=== PATIENT | female | born 1985 | race Hispanic/Latino ===

== ENCOUNTER 2019-04-07 00:15 | Emergency (ER) | payer SELFPAY ==
--- OUTSIDE RECORDS SUMMARY | 2019-04-07 00:18 | XMS REPORT ---
:1985 [facility] E[place] [address] [place] [id number] Care Team Providers Name Role Phone Unavailable Unavailable Unavailable Problems This patient has no known problems. Allergies, Adverse Reactions, Alerts This patient has no known allergies or adverse reactions. Medications This patient has no known medications.
[2019-04-07 01:09] LABS: Basophils % 0.7 % (0-1.3); Lymphocytes % 30.3 % (15.3-44.8); MPV 9.6 fL (7.6-11.3); RBC Red Blood Cell Count 3.81 M/uL (3.86-4.86)
[2019-04-07] MEDS ORDERED: ONDANSETRON 4 MG/2 ML VIAL ONE (01:17)
[2019-04-07 01:19] LABS: Urine Bacteria <20 /HPF (<20); Urine Culture Reflex Order REFLEXED; Urine Mucus 1+ /HPF (NONE SEEN)
[2019-04-07 01:26] LABS: ALT/SGPT 22 U/L (12-78); AST/SGOT 12 U/L (15-37); Albumin 3.3 g/dL (3.4-5.0); Alkaline Phosphatase 52 U/L (45-117); BUN Blood Urea Nitrogen 19 mg/dL (7-18); Bicarbonate 27 mmol/L (21-32); Bilirubin Direct < 0.1 mg/dL (0-0.2); Bilirubin Total 0.1 mg/dL (0.2-1.0); Glucose Level 122 mg/dL (74-106); Lipase 178 U/L (73-393); Potassium 4.1 mmol/L (3.5-5.1); Protein, Total 7.1 g/dL (6.4-8.2); Sodium Level 138 mmol/L (136-145)
[2019-04-07 02:41] LABS: Urine Blood 2+ (NEG); Urine Glucose NEGATIVE (NEG); Urine Protein NEGATIVE (NEG); Urine Specific Gravity 1.025 (1.005-1.030)
--- NOTE | 2019-04-07 02:57 | ER ---
Nurse's Notes [facility] Name: Katja Pena Age: 33 yrs Sex: Female : 1985 Arrival Date: 04/07/2019 Time: 00:17 Bed 7 Private MD: Diagnosis: Urinary tract infection, site not specified;Nausea and vomiting;Diarrhea, unspecified Presentation: 04/07 00:32 Presenting complaint: Patient states: N/V/D abd pain cramps intermittent X1 week. ak1 Transition of care: patient was not received from another setting of care. Onset of symptoms is unknown. Risk Assessment: Do you want to hurt yourself or someone else? Patient reports no desire to harm self or others. Initial Sepsis Screen: Does the patient meet any 2 criteria? No. Patient's initial sepsis screen is negative. Does the patient have a suspected source of infection? No. Patient's initial sepsis screen is negative. Care prior to arrival: None. 00:32 Method Of Arrival: Ambulatory ak1 00:32 Acuity: ESSENCE 3 ak1 Triage Assessment: 00:34 General: Appears in no apparent distress. Behavior is calm, cooperative. Pain: ak1 Complains of pain in suprapubic area. 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 - Social history:: Smoking status: Patient uses tobacco products, denies chronic smoking, but will smoke occasionally. - Ebola Screening: : No symptoms or risks identified at this time. Screenin:36 Abuse screen: Denies threats or abuse. Denies injuries from another. Nutritional ak1 screening: No deficits noted. Tuberculosis screening: No symptoms or risk factors identified. Fall Risk None identified. Assessment: 01:00 General: Appears in no apparent distress. Behavior is appropriate for age. Pain: lp1 Complains of pain in suprapubic area Pain currently is 6 out of 10 on a pain scale. Quality of pain is described as crampy. Neuro: No deficits noted. Cardiovascular: Patient's skin is warm and dry. Respiratory: Respiratory effort is even, unlabored. GI: Abdomen is non-distended, Bowel sounds present X 4 quads. Abdomen is tender to palpation in suprapubic area. : Reports pain in suprapubic area. EENT: No signs and/or symptoms were reported regarding the EENT system. Derm: Skin is pink, warm \T\ dry. Musculoskeletal: No deficits noted. 02:00 Reassessment: Patient appears in no apparent distress at this time. Patient states lp1 nausea improved. 03:00 Reassessment: Patient is alert, oriented x 3, equal unlabored respirations, skin lp1 warm/dry/pink. Patient states feeling better. Vital Signs: 00:31 BP 119 / 102; Pulse 82; Resp 20; Temp 98.4; Pulse Ox 99% on R/A; Weight 65.77 kg (R); ak1 Height 5 ft. 2 in. (157.48 cm) (R); Pain 9/10; 01:30 BP 116 / 67; Pulse 68; Resp 16; Pulse Ox 100% on R/A; lp1 03:35 BP 116 / 81; Pulse 60; Resp 16; Pulse Ox 100% on R/A; Pain 7/10; lp1 00:31 Body Mass Index 26.52 (65.77 kg, 157.48 cm) ak1 ED Course: 00:17 Patient arrived in ED. cf2 00:29 Rosalva Guajardo, RN is Primary Nurse. lp1 00:31 Arm band placed on Patient placed in an exam room, on a stretcher, on pulse oximetry, ak1 Patient notified of wait time. 00:33 Triage completed. ak1 00:34 Shiva Pina MD is Attending Physician. tw4 00:55 Initial lab(s) drawn, by co, sent to lab. Inserted saline lock: 20 gauge in right lp1 antecubital area, using aseptic technique. Blood collected. 01:00 Patient has correct armband on for positive identification. lp1 03:17 No provider procedures requiring assistance completed. IV discontinued, No lp1 redness/swelling at site. Pressure dressing applied. 03:23 Primary Nurse role handed off by Rosalva Guajardo, RN ak1 03:35 Rosalva Guajardo, RN is Primary Nurse. lp1 Administered Medications: 01:16 Drug: Zofran 4 mg Route: IVP; Site: right antecubital; lp1 02:00 Follow up: Response: No adverse reaction; Marked relief of symptoms lp1 03:05 Drug: Rocephin - (cefTRIAXone) 1 grams Route: IVPB; Infused Over: 30 mins; Site: right lp1 antecubital; 03:20 Follow up: IV Status: Completed infusion; IV Intake: 10ml lp1 03:16 Not Given (no diarrhea): LoMOTIL 1 tabs PO once lp1 03:34 Drug: TORadol 30 mg Route: IVP; Site: right antecubital; lp1 03:34 Follow up: Response: Medication administered at discharge. lp1 Intake: 03:20 IV: 10ml; Total: 10ml. lp1 Outcome: 02:56 Discharge ordered by . [email or web address] 03:19 Discharged to home ambulatory. lp1 03:19 Condition: good 03:19 Discharge instructions given to patient, Instructed on discharge instructions, follow up and referral plans. medication usage, Demonstrated understanding of instructions, follow-up care, medications, Prescriptions given X 4. 03:20 Patient left the ED. lp1 03:38 Patient left the ED. lp1 Signatures: Rosalva Guajardo RN RN lp1 Xochilt Khan RN RN ak1 Shiva Pina MD MD tw4 Kamar Hillman cf2 Corrections: (The following items were deleted from the chart) 03:35 03:19 Discharge instructions given to patient, Instructed on discharge instructions, lp1 follow up and referral plans. medication usage, Demonstrated understanding of instructions, follow-up care, medications, Prescriptions given X 3, lp1
--- NOTE | 2019-04-07 02:58 | EDPHYS ---
Physician Documentation [facility] Name: Katja Pena Age: 33 yrs Sex: Female : 1985 Arrival Date: 04/07/2019 Time: 00:17 Bed 7 Private MD: ED Physician Shiva Pina HPI: 04/07 01:50 This 33 yrs old Female presents to ER via Ambulatory with complaints of tw4 Abdominal Pain, Pelvic Pain, Vaginal Pain, Nausea. 01:50 The patient presents with abdominal pain right lower quadrant, in the left lower tw4 quadrant. Onset: The symptoms/episode began/occurred today. The symptoms do not radiate. Associated signs and symptoms: none. 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 - Social history:: Smoking status: Patient uses tobacco products, denies chronic smoking, but will smoke occasionally. - Ebola Screening: : No symptoms or risks identified at this time. ROS: 02:31 Cardiovascular: Negative for chest pain, palpitations, and edema, Respiratory: Negative tw4 for shortness of breath, cough, wheezing, and pleuritic chest pain, Back: Negative for injury and pain, MS/Extremity: Negative for injury and deformity, Skin: Negative for injury, rash, and discoloration, Neuro: Negative for headache, weakness, numbness, tingling, and seizure. 02:31 Abdomen/GI: Positive for abdominal pain, nausea and vomiting, nausea, vomiting, and diarrhea, nausea, vomiting, diarrhea. Exam: 02:31 Constitutional: This is a well developed, well nourished patient who is awake, alert, tw4 and in no acute distress. Head/Face: Normocephalic, atraumatic. Chest/axilla: Normal chest wall appearance and motion. Nontender with no deformity. No lesions are appreciated. Cardiovascular: Regular rate and rhythm with a normal S1 and S2. No gallops, murmurs, or rubs. Normal PMI, no JVD. No pulse deficits. Respiratory: Lungs have equal breath sounds bilaterally, clear to auscultation and percussion. No rales, rhonchi or wheezes noted. No increased work of breathing, no retractions or nasal flaring. Back: No spinal tenderness. No costovertebral tenderness. Full range of motion. MS/ Extremity: Pulses equal, no cyanosis. Neurovascular intact. Full, normal range of motion. Neuro: Awake and alert, GCS 15, oriented to person, place, time, and situation. Cranial nerves II-XII grossly intact. Motor strength 5/5 in all extremities. Sensory grossly intact. Cerebellar exam normal. Normal gait. Vital Signs: 00:31 BP 119 / 102; Pulse 82; Resp 20; Temp 98.4; Pulse Ox 99% on R/A; Weight 65.77 kg (R); ak1 Height 5 ft. 2 in. (157.48 cm) (R); Pain 9/10; 01:30 BP 116 / 67; Pulse 68; Resp 16; Pulse Ox 100% on R/A; lp1 03:35 BP 116 / 81; Pulse 60; Resp 16; Pulse Ox 100% on R/A; Pain 7/10; lp1 00:31 Body Mass Index 26.52 (65.77 kg, 157.48 cm) ak1 MDM: 00:35 Patient medically screened. tw4 03:05 Data reviewed: vital signs, nurses notes, lab test result(s), CBC, white blood cell tw4 count, hemoglobin, hematocrit, platelets, electrolytes, sodium, potassium, chloride, serum bicarbonate, BUN, creatinine, serum glucose, hepatic panel, urinalysis, pyuria. Counseling: I had a detailed discussion with the patient and/or guardian regarding: the historical points, exam findings, and any diagnostic results supporting the discharge/admit diagnosis, lab results. Medication response: Zofran relieved the patient's nausea. Response to treatment: the patient's symptoms have markedly improved after treatment, and as a result, I will discharge patient. Special discussion: I discussed with the patient/guardian in detail that at this point there is no indication for admission to the hospital. It is understood, however, that if the symptoms persist or worsen the patient needs to return immediately for re-evaluation. 04/07 00:41 Order name: Basic Metabolic Panel tw4 04/07 00:41 Order name: CBC with Diff; Complete Time: 02:21 tw4 04/07 02:21 Interpretation: Normal except: RBC 3.81; MCV 97.2. [facility] [place] 04/07 00:41 Order name: Creatinine for Radiology; Complete Time: 02:21 tw4 04/07 00:41 Order name: Hepatic Function; Complete Time: 02:21 tw4 04/07 02:22 Interpretation: Normal except: AST 12; BILIT 0.1; ALB 3.3; GLOB 3.8; A/G 0.9. tw 04/07 00:41 Order name: Lipase; Complete Time: 02:21 tw4 04/07 00:42 Order name: Basic Metabolic Panel; Complete Time: 02:21 [facility] 04/07 02:22 Interpretation: Normal except: GLUC 122; BUN 19. [facility] [place] 04/07 00:47 Order name: Urine Microscopic Only; Complete Time: 02:21 [facility] 04/07 02:46 Interpretation: Normal except: URBC 5-10; UWBC 10-20. [facility] [place] 04/07 01:23 Order name: Urine Culture [facility] 04/07 01:58 Order name: Urine Dipstick--Ancillary (enter results) [facility] 04/07 01:58 Order name: Urine --Ancillary (enter results) [facility] 04/07 00:41 Order name: Urine Dipstick-Ancillary (obtain specimen); Complete Time: 00:48 tw 04/07 00:41 Order name: IV Saline Lock; Complete Time: 01:03 tw 04/07 00:41 Order name: Labs collected and sent; Complete Time: 01:03 [facility] [place] 04/07 00:41 Order name: Urine Test (obtain specimen); Complete Time: 00:48 tw Administered Medications: 01:16 Drug: Zofran 4 mg Route: IVP; Site: right antecubital; lp1 02:00 Follow up: Response: No adverse reaction; Marked relief of symptoms lp1 03:05 Drug: Rocephin - (cefTRIAXone) 1 grams Route: IVPB; Infused Over: 30 mins; Site: right lp1 antecubital; 03:20 Follow up: IV Status: Completed infusion; IV Intake: 10ml lp1 03:16 Not Given (no diarrhea): LoMOTIL 1 tabs PO once lp1 03:34 Drug: TORadol 30 mg Route: IVP; Site: right antecubital; lp1 03:34 Follow up: Response: Medication administered at discharge. lp1 Disposition: 04/07/19 02:56 Discharged to Home. Impression: Urinary tract infection, site not specified, Nausea and vomiting, Diarrhea, unspecified. - Condition is Stable. - Discharge Instructions: Food Choices to Help Relieve Diarrhea, Adult, Diarrhea, Adult, Nausea and Vomiting, Adult, Rotavirus Infection, Adult, Urinary Tract Infection, Adult, Antibiotic Medicine, [id number]. - Prescriptions for Zofran 4 mg Oral Tablet - take 1 tablet by ORAL route every 12 hours As needed; 6 tablet. Lomotil 2.5- 0.025 mg Oral Tablet - take 2 tablet by ORAL route once daily As needed; 20 tablet. Macrobid 100 mg Oral Capsule - take 1 capsule by ORAL route every 12 hours for 10 days; 20 capsule. Bentyl 20 mg Oral Tablet - take 1 tablet by ORAL route every 6 hours As needed; 20 tablet. - Medication Reconciliation Form, Thank You Letter, Antibiotic Education, Prescription Opioid Use form. - Follow up: Private Physician; When: Upon discharge from the Emergency Department; Reason: Recheck today's complaints, Continuance of care. - Problem is new. - Symptoms have improved. Signatures: Dispatcher [employer] EDMS Rosalva Guajardo RN RN lp1 Xochilt Khan RN RN ak1 Shiva Pina MD MD tw4 Corrections: (The following items were deleted from the chart) 03:20 02:56 04/07/2019 02:56 Discharged to Home. Impression: Urinary tract infection, site lp1 not specified; Nausea and vomiting; Diarrhea, unspecified. Condition is Stable. Forms are Medication Reconciliation Form, Thank You Letter, Antibiotic Education, Prescription Opioid Use. Follow up: Private Physician; When: Upon discharge from the Emergency Department; Reason: Recheck today's complaints, Continuance of care. Problem is new. Symptoms have improved. tw4 03:38 03:20 04/07/2019 02:56 Discharged to Home. Impression: Urinary tract infection, site lp1 not specified; Nausea and vomiting; Diarrhea, unspecified. Condition is Stable. Discharge Instructions: Food Choices to Help Relieve Diarrhea, Adult, Diarrhea, Adult, Nausea and Vomiting, Adult, Rotavirus Infection, Adult, Urinary Tract Infection, Adult, Antibiotic Medicine, [id number]. Prescriptions for Zofran 4 mg Oral Tablet - take 1 tablet by ORAL route every 12 hours As needed; 6 tablet, Lomotil 2.5-0.025 mg Oral Tablet - take 2 tablet by ORAL route once daily As needed; 20 tablet, Macrobid 100 mg Oral Capsule - take 1 capsule by ORAL route every 12 hours for 10 days; 20 capsule. and Forms are Medication Reconciliation Form, Thank You Letter, Antibiotic Education, Prescription Opioid Use. Follow up: Private Physician; When: Upon discharge from the Emergency Department; Reason: Recheck today's complaints, Continuance of care. Problem is new. Symptoms have improved. lp1
[2019-04-07] MEDS ORDERED: CEFTRIAXONE/SWI 1gm 1 GM/10 ML SYR ONE (03:01)
[2019-04-07] MEDS ORDERED: DIPHENOX/ATROP SULF 1 TAB PO ONE (03:01)
[2019-04-07] MEDS ORDERED: KETOROLAC 30 MG/ML INJ ONE (03:33)
[2019-04-07 05:49] VITALS: TEMP 98.4
[2019-04-07 05:50] VITALS: O2SAT 100
[2019-04-07 06:07] VITALS: BP 116/81
== END 2019-04-07 03:38 | disposition home or self-care (01) ==
LOC: ER 00:15
DX: N39.0 Urinary tract infection, site not specified (principal); R19.7 Diarrhea, unspecified; Z72.0 Tobacco use
CPT/HCPCS: 36415; 80048; 80076; 81003; 81015; 81025; 83690; 85025; 87086; 87088; 96374; 96375; 99284; J0696; J2405

== ENCOUNTER 2020-09-07 17:56 | Emergency (ER) | payer SELFPAY ==
--- OUTSIDE RECORDS SUMMARY | 2020-09-07 17:59 | XMS REPORT | Continuity of Care Document ---
:1985 Author Organization [facility] t Address [address] [place] [address] Dr. E[address] [place] [id number] Care Team Providers Name Role Phone Unavailable Unavailable Unavailable Problems This patient has no known problems. Allergies, Adverse Reactions, Alerts This patient has no known allergies or adverse reactions. Medications This patient has no known medications. Procedures This patient has no known procedures. Results This patient has no known results.
[2020-09-07 18:41] LABS: Urine Blood 2+ (Negative); Urine Glucose Negative (Negative); Urine Protein Negative (Negative); Urine Specific Gravity 1.025 (1.005-1.030)
--- NOTE | 2020-09-07 18:42 | EDPHYS ---
Physician Documentation [facility] Name: Katja Pena Age: 35 yrs Sex: Female : 1985 Arrival Date: 09/07/2020 Time: 17:58 Bed 15 Private MD: ED Physician Hussain Umana HPI: 09/07 19:07 This 35 yrs old Female presents to ER via Ambulatory with complaints of kb Foreign body In Vagina, Vaginal Discharge. 19:07 The patient presents with vaginal discharge, that is malodorous brown discharge. Onset: kb The symptoms/episode began/occurred 2 week(s) ago. Modifying factors: The symptoms are alleviated by nothing, the symptoms are aggravated by nothing. Associated signs and symptoms: Pertinent positives: vaginal discharge. Severity of symptoms: At their worst the symptoms were moderate, in the emergency department the symptoms are unchanged. The patient has experienced a previous episode. The patient has not recently seen a physician. Pt reports she has had some vaginal discharge that has a bad smell to it for about 2 weeks. States she had a similar smell last time she left a tampon in so she thinks there is one in there. States she isn't sure how long it has been there, LMP that she can think of was 2 months ago. slight spotting last month. Denies fever, abd pain, n/v/d. States she feels some pressure to vagina. 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 - Social history:: Smoking status: Patient reports the use of cigarette tobacco products, denies chronic smoking, but will smoke occasionally. ROS: 19:05 Constitutional: Negative for fever, chills, and weight loss. kb 19:05 : Positive for pressure in vagina, possible FB. 19:06 All other systems are negative. kb Exam: 19:06 Constitutional: This is a well developed, well nourished patient who is awake, alert, kb and in no acute distress. ENT: Moist Mucous membranes Respiratory: Respirations even and unlabored. No increased work of breathing, no retractions or nasal flaring. Abdomen/GI: Soft, non-tender. No distention Skin: Warm, dry with normal turgor. Normal color. MS/ Extremity: Pulses equal, no cyanosis. Neurovascular intact. Full, normal range of motion. Neuro: Awake and alert, GCS 15, oriented to person, place, time, and situation. Moves all extremities. Normal gait. Psych: Awake, alert, with orientation to person, place and time. Behavior, mood, and affect are within normal limits. 19:07 : Pelvic Exam: Speculum exam: tampon in vagina , discharge, malodorous. kb Vital Signs: 18:12 BP 112 / 80; Pulse 71; Resp 18; Temp 97.4; Pulse Ox 97% on R/A; Weight 68.04 kg; Height em 5 ft. 2 in. (157.48 cm); Pain 8/10; 18:26 BP 93 / 61; Pulse 70; Resp 14; Pulse Ox 98% on R/A; vg1 18:12 Body Mass Index 27.44 (68.04 kg, 157.48 cm) em Procedures: 19:06 Foreign Body Removal: a tampon, from the vagina, by ring forcepts. The patient kb tolerated the removal well. MDM: 18:16 Patient medically screened. kb 19:05 Data reviewed: vital signs, nurses notes. Data interpreted: Pulse oximetry: on room air kb is 98 %. Interpretation: normal. Counseling: I had a detailed discussion with the patient and/or guardian regarding: the historical points, exam findings, and any diagnostic results supporting the discharge/admit diagnosis, the need for outpatient follow up, an OB/Gyne specialist, to return to the emergency department if symptoms worsen or persist or if there are any questions or concerns that arise at home. 09/07 18:41 Order name: Urine Dipstick-Ancillary; Complete Time: 18:43 EDMS Administered Medications: 19:06 Drug: Flagyl (metroNIDAZOLE) 500 mg Route: PO; vg1 19:07 Follow up: Response: Medication administered at discharge. vg1 19:06 Drug: Augmentin (Amoxicillin-Clavulanate) 875 mg Route: PO; vg1 19:07 Follow up: Response: Medication administered at discharge. vg1 19:06 Drug: Tylenol 1000 mg Route: PO; vg1 19:07 Follow up: Response: Medication administered at discharge. vg1 Disposition: 09/08 13:16 Co-signature as Attending Physician, Hussain Umana MD I agree with the assessment and kdr plan of care. Disposition: 09/07/20 18:41 Discharged to Home. Impression: Foreign body in vulva and vagina - tampon - removed. - Condition is Stable. - Discharge Instructions: Vaginal Foreign Body, [id number]. - Prescriptions for Augmentin 875- 125 mg Oral Tablet - take 1 tablet by ORAL route every 12 hours for 10 days; 20 tablet. Flagyl 500 mg Oral Tablet - take 1 tablet by ORAL route every 8 hours for 10 days; 30 tablet. - Medication Reconciliation Form, Thank You Letter, Antibiotic Education, Prescription Opioid Use form. - Follow up: Emergency Department; When: As needed; Reason: Worsening of condition. Follow up: Private Physician; When: 2 - 3 days; Reason: Recheck today's complaints, Continuance of care, Re-evaluation by your physician. Signatures: Dispatcher [employer] EDTX Keiko Mckeon, VISUAL AND STOCK ASSOCIATE-C VISUAL AND STOCK ASSOCIATE-CkHussain Arrieta MD MD [facility] David Pop, RN RN em Amy Allen, RN RN vg1 Corrections: (The following items were deleted from the chart) 09/07 19:08 18:41 09/07/2020 18:41 Discharged to Home. Impression: Foreign body in vulva and vagina vg1 - tampon - removed. Condition is Stable. Forms are Medication Reconciliation Form, Thank You Letter, Antibiotic Education, Prescription Opioid Use. Follow up: Emergency Department; When: As needed; Reason: Worsening of condition. Follow up: Private Physician; When: 2 - 3 days; Reason: Recheck today's complaints, Continuance of care, Re-evaluation by your physician. kb
--- NOTE | 2020-09-07 18:42 | ER ---
Nurse's Notes [facility] Name: Katja Pena Age: 35 yrs Sex: Female : 1985 Arrival Date: 09/07/2020 Time: 17:58 Bed 15 Private MD: Diagnosis: Foreign body in vulva and vagina-tampon - removed Presentation: 09/07 18:12 Chief complaint: Patient states: has had a tampon stuck for 2 weeks, reports foul odor em and discharge, denies fever, denies burning with urination. Coronavirus screen: Client denies travel out of the [place] in the last 14 days. Ebola Screen: Patient negative for fever greater than or equal to 101.5 degrees Fahrenheit, and additional compatible Ebola Virus Disease symptoms Patient denies exposure to infectious person. Patient denies travel to an Ebola-affected area in the 21 days before illness onset. No symptoms or risks identified at this time. Initial Sepsis Screen: Does the patient meet any 2 criteria? No. Patient's initial sepsis screen is negative. Does the patient have a suspected source of infection? No. Patient's initial sepsis screen is negative. Risk Assessment: Do you want to hurt yourself or someone else? Patient reports no desire to harm self or others. Onset of symptoms was September 07, 2020. 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 - Social history:: Smoking status: Patient reports the use of cigarette tobacco products, denies chronic smoking, but will smoke occasionally. Screenin:27 Abuse screen: Denies threats or abuse. Nutritional screening: No deficits noted. vg1 Tuberculosis screening: No symptoms or risk factors identified. Fall Risk No fall in past 12 months (0 pts). No secondary diagnosis (0 pts). No IV (0 pts). Ambulatory Aid- None/Bed Rest/Nurse Assist (0 pts). Gait- Normal/Bed Rest/Wheelchair (0 pts) Mental Status- Oriented to own ability (0 pts). Total Truong Fall Scale indicates No Risk (0-24 pts). Assessment: 18:25 General: Appears in no apparent distress. comfortable, Behavior is calm, cooperative. vg1 Pain: Complains of pain in pelvis Pain currently is 9 out of 10 on a pain scale. Neuro: Level of Consciousness is awake, alert, obeys commands, Oriented to person, place, time, situation, Reports headache. Cardiovascular: Patient's skin is warm and dry. Respiratory: Airway is patent Respiratory effort is even, unlabored. Derm: Skin is intact, Skin is pink, warm \T\ dry. Musculoskeletal: Circulation, motion, and sensation intact. 18:26 : Reports discharge, from vagina that is yellow, vaginal itching, vaginal bleeding vg1 that is. 19:05 Reassessment: Received VO from KEEGAN Mckeon to administer Tylenol 1000 mg PO x1. vg1 19:07 Reassessment: Patient appears in no apparent distress at this time. Patient and/or vg1 family updated on plan of care and expected duration. Pain level reassessed. Patient is alert, oriented x 3, equal unlabored respirations, skin warm/dry/pink. Vital Signs: 18:12 BP 112 / 80; Pulse 71; Resp 18; Temp 97.4; Pulse Ox 97% on R/A; Weight 68.04 kg; Height em 5 ft. 2 in. (157.48 cm); Pain 8/10; 18:26 BP 93 / 61; Pulse 70; Resp 14; Pulse Ox 98% on R/A; vg1 18:12 Body Mass Index 27.44 (68.04 kg, 157.48 cm) em ED Course: 17:58 Patient arrived in ED. ds1 18:14 Triage completed. em 18:14 Arm band placed on. em 18:16 Keiko Mckeon FNP-C is [facility]. kb 18:16 Hussain Umana MD is Attending Physician. kb 18:18 Amy Allen, RN is Primary Nurse. vg1 18:27 Patient has correct armband on for positive identification. Placed in gown. Bed in low vg1 position. Call light in reach. Side rails up X 1. Adult w/ patient. 19:05 No provider procedures requiring assistance completed. Patient did not have IV access vg1 during this emergency room visit. Administered Medications: 19:06 Drug: Flagyl (metroNIDAZOLE) 500 mg Route: PO; vg1 19:07 Follow up: Response: Medication administered at discharge. vg1 19:06 Drug: Augmentin (Amoxicillin-Clavulanate) 875 mg Route: PO; vg1 19:07 Follow up: Response: Medication administered at discharge. vg1 19:06 Drug: Tylenol 1000 mg Route: PO; vg1 19:07 Follow up: Response: Medication administered at discharge. vg1 Outcome: 18:41 Discharge ordered by . enrico 19:07 Discharged to home ambulatory, with family. vg1 19:07 Condition: stable 19:07 Discharge instructions given to patient, Instructed on discharge instructions, follow up and referral plans. medication usage, Demonstrated understanding of instructions, follow-up care, medications, Prescriptions given X 2. 19:08 Patient left the ED. vg1 Signatures: Keiko Mckeon, ARABIC TRANSLATOR-C ARABIC TRANSLATOR-David Campbell, RN RN Selam Reese ds1 Amy Allen RN RN vg1 Corrections: (The following items were deleted from the chart) 18:27 18:25 Neuro: Level of Consciousness is awake, alert, obeys commands, Oriented to vg1 person, place, time, situation, vg1
[2020-09-07 19:18] VITALS: TEMP 97.4
[2020-09-07] MEDS ORDERED: metroNIDAZOLE 500 MG TABLET ONE (19:19)
[2020-09-07 19:20] VITALS: BP 93/61; O2SAT 98
[2020-09-07] MEDS ORDERED: AMOX/K CLAV 875 MG TAB ONE (19:20)
[2020-09-07] MEDS ORDERED: ACETAMINOPHEN 500 MG TAB ONE (19:20)
== END 2020-09-07 19:08 | disposition home or self-care (01) ==
LOC: ER 17:56
DX: T19.2XXA Foreign body in vulva and vagina, initial encounter (principal); F17.210 Nicotine dependence, cigarettes, uncomplicated
CPT/HCPCS: 81003; 99283

== ENCOUNTER 2020-12-28 01:02 | Emergency (ER) | payer SELFPAY ==
[2011-12-27 02:39] VITALS: BP 119/69
--- OUTSIDE RECORDS SUMMARY | 2020-12-28 01:05 | XMS REPORT | Continuity of Care Document ---
:1985 Author Organization [facility] t Address [address] [place] [address] Dr. Eaton [address] [place] [id number] Care Team Providers Name Role Phone Unavailable Unavailable Unavailable Problems This patient has no known problems. Allergies, Adverse Reactions, Alerts This patient has no known allergies or adverse reactions. Medications This patient has no known medications. Procedures This patient has no known procedures. Results This patient has no known results.
--- NOTE | 2020-12-28 01:36 | ER ---
Nurse's Notes [facility] Name: Katja Pena Age: 35 yrs Sex: Female : 1985 Arrival Date: 12/28/2020 Time: 01:07 Bed Waiting Private MD: Diagnosis: Presentation: 12/28 01:24 Note no answer from the lobby at this time. em 01:34 Note no answer from the lobby at this time. em ED Course: 01:07 Patient arrived in ED. bp1 Administered Medications: No medications were administered Outcome: 01:35 Patient left the ED. em Signatures: David Pop, RN RN em Renetta Polanco bp1
== END 2020-12-28 01:35 | disposition left against medical advice (07) ==
LOC: ER 01:02
DX: Z02.9 Encounter for administrative examinations, unspecified (principal)

== ENCOUNTER 2022-02-28 18:36 | Emergency (ER) | payer SELFPAY ==
--- NOTE | 2022-02-28 20:39 | ER ---
Nurse's Notes [facility] Name: Katja Pena Age: 36 yrs Sex: Female : 1985 Arrival Date: 02/28/2022 Time: 18:37 Bed DIS3 Private MD: Diagnosis: Presentation: 02/28 18:48 Chief complaint: Right elbow pain x 1 month, right lower molar pain x 2 days. iw Coronavirus screen: At this time, the client does not indicate any symptoms associated with coronavirus-19. Ebola Screen: No symptoms or risks identified at this time. Risk Assessment: Do you want to hurt yourself or someone else? Patient reports no desire to harm self or others. Onset of symptoms was January 2022. 18:48 Method Of Arrival: Ambulatory iw 18:48 Acuity: ESSENCE 4 iw Historical: - Allergies: 18:49 No Known Allergies; iw Assessment: 20:38 General: Called for patient in lobby. No answer. tw5 Vital Signs: 18:48 BP 139 / 98; Pulse 82; Resp 16; Temp 97.1; Pulse Ox 100% on R/A; Weight 52.16 kg; iw Height 5 ft. 2 in. (157.48 cm); Pain 10/10; 18:48 Body Mass Index 21.03 (52.16 kg, 157.48 cm) iw ED Course: 18:37 Patient arrived in ED. as 18:49 Triage completed. iw 18:49 Arm band placed on. iw 19:05 Emre Cuevas PA is PHCP. cp 19:05 Hussain Umana MD is Attending Physician. cp Administered Medications: No medications were administered Outcome: 20:38 Patient left the ED. tw5 Signatures: Caitie Stephens Irene RN RN iw Emer Cuevas PA PA cp Wood, Tiffany tw5
[2022-02-28 20:44] VITALS: BP 139/98; TEMP 97.1; O2SAT 100
== END 2022-02-28 20:38 | disposition left against medical advice (07) ==
LOC: ER 18:36
DX: Z53.21 Procedure and treatment not carried out due to patient leaving prior to being seen by health care provider (principal)
CPT/HCPCS: 99281

== ENCOUNTER 2022-03-01 12:08 | Emergency (ER) | payer SELFPAY ==
--- OUTSIDE RECORDS SUMMARY | 2022-03-01 12:11 | XMS REPORT | Continuity of Care Document ---
:1985 Author Organization [facility] t Address [address] [place] [address] Dr. Eaton [address] [place] [id number] Care Team Providers Name Role Phone Unavailable Unavailable Unavailable Problems This patient has no known problems. Allergies, Adverse Reactions, Alerts This patient has no known allergies or adverse reactions. Medications This patient has no known medications. Procedures This patient has no known procedures. Results This patient has no known results.
--- NOTE | 2022-03-01 13:26 | RAD REPORT ---
EXAM DESCRIPTION: RAD - Elbow Right 2 View - 03/01/2022 1:10 pm CLINICAL HISTORY: PAIN COMPARISON: None FINDINGS/IMPRESSION: No acute fracture. No malalignment. No significant focal degenerative changes.
[2022-03-01] MEDS ORDERED: MORPHINE 2 MG/ML SYR ONE (13:35)
[2022-03-01] MEDS ORDERED: LIDOCAINE 1% MPF 2 ML AMPULE ONE (13:36)
--- NOTE | 2022-03-01 13:45 | ER ---
Nurse's Notes [facility] Name: Katja Pena Age: 36 yrs Sex: Female : 1985 Arrival Date: 03/01/2022 Time: 12:09 Bed 14 Private MD: Diagnosis: Dental caries, unspecified Presentation: 03/01 12:23 Chief complaint: Patient states: Right lower jaw/tooth pain, headache x 2 days, jl7 swelling x 1 days, right elbow pain x 1 month. Coronavirus screen: Vaccine status: Patient reports being unvaccinated. At this time, the client does not indicate any symptoms associated with coronavirus-19. Ebola Screen: No symptoms or risks identified at this time. Initial Sepsis Screen: Does the patient meet any 2 criteria? No. Patient's initial sepsis screen is negative. Does the patient have a suspected source of infection? No. Patient's initial sepsis screen is negative. Risk Assessment: Do you want to hurt yourself or someone else? Patient reports no desire to harm self or others. Onset of symptoms was February 27, 2022. 12:23 Method Of Arrival: Ambulatory [facility] 12:23 Acuity: ESSENCE 4 jl7 Triage Assessment: 12:25 General: Appears in no apparent distress. uncomfortable, Behavior is cooperative, jl7 anxious. Pain: Complains of pain in mouth Pain currently is 10 out of 10 on a pain scale. EENT: Reports pain in mouth. 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 - Social history:: Smoking status: Patient denies any tobacco usage or history of. Screenin:52 Abuse screen: Denies threats or abuse. Nutritional screening: No deficits noted. kr3 Tuberculosis screening: No symptoms or risk factors identified. Fall Risk None identified. Vital Signs: 12:23 BP 124 / 91; Pulse 83; Resp 17; Temp 98; Pulse Ox 100% ; Weight 54.43 kg; Height 5 ft. jl7 1 in. (154.94 cm); Pain 10/10; 13:54 BP 123 / 96; Pulse 65; Resp 18; Pulse Ox 100% on R/A; kr3 12:23 Body Mass Index 22.67 (54.43 kg, 154.94 cm) jl7 ED Course: 12:09 Patient arrived in ED. as 12:17 Dylan Rivera is PHCP. jl9 12:17 Erika Stovall MD is Attending Physician. jl9 12:25 Triage completed. jl7 12:25 Arm band placed on right wrist. jl7 12:30 Chantel Pendleton, RN is Primary Nurse. kr3 12:30 Bed in low position. Call light in reach. Side rails up X 1. kr3 13:12 XRAY Elbow RIGHT 2 view In Process Unspecified. EDMS 13:52 No provider procedures requiring assistance completed. Patient did not have IV access kr3 during this emergency room visit. Administered Medications: 13:43 Drug: morphine 2 mg Route: IM; Site: right deltoid; kr3 13:52 Follow up: Response: No adverse reaction; RASS: Alert and Calm (0) kr3 13:43 Drug: Lidocaine (1 %) 5 mg Route: Infiltration; kr3 13:52 Follow up: Response: No adverse reaction kr3 Medication: 13:53 VIS not applicable for this client. kr3 Outcome: 13:44 Discharge ordered by . jl9 13:52 Discharged to home ambulatory. kr3 13:52 Condition: stable 13:52 Discharge instructions given to patient, Instructed on discharge instructions, follow up and referral plans. medication usage, Demonstrated understanding of instructions, follow-up care, medications, Prescriptions given X 2. 13:53 Patient left the ED. kr3 Signatures: Dispatcher [employer] Caitie Saavedra Jahala, RN RN jl7 Dylan Rivera jl9 Chantel Pendleton, RN RN kr3
--- NOTE | 2022-03-01 13:45 | EDPHYS ---
Physician Documentation [facility] Name: Katja Pena Age: 36 yrs Sex: Female : 1985 Arrival Date: 03/01/2022 Time: 12:09 Bed 14 Private MD: ED Physician Erika Stovall HPI: 03/01 13:40 This 36 yrs old Female presents to ER via Ambulatory with complaints of jl9 Toothache, Facial Swelling x2 days. Elbow Pain x2 month. . 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 - Social history:: Smoking status: Patient denies any tobacco usage or history of. ROS: 13:41 Constitutional: Negative for fever, chills, and weight loss, Eyes: Negative for injury, jl9 pain, redness, and discharge. 13:41 Neck: Negative for injury, pain, and swelling, Cardiovascular: Negative for chest pain, palpitations, and edema, Respiratory: Negative for shortness of breath, cough, wheezing, and pleuritic chest pain, Abdomen/GI: Negative for abdominal pain, nausea, vomiting, diarrhea, and constipation, Back: Negative for injury and pain, : Negative for injury, bleeding, discharge, and swelling. 13:41 Skin: Negative for injury, rash, and discoloration, Neuro: Negative for headache, weakness, numbness, tingling, and seizure, Psych: Negative for depression, anxiety, suicide ideation, homicidal ideation, and hallucinations, Allergy/Immunology: Negative for hives, rash, and allergies, Endocrine: Negative for neck swelling, polydipsia, polyuria, polyphagia, and marked weight changes, Hematologic/Lymphatic: Negative for swollen nodes, abnormal bleeding, and unusual bruising. 13:41 ENT: Positive for dental pain. 13:41 MS/extremity: Positive for right elbow pain. . Exam: 13:41 Constitutional: This is a well developed, well nourished patient who is awake, alert, jl9 and in no acute distress. Head/Face: Normocephalic, atraumatic. Eyes: Pupils equal round and reactive to light, extra-ocular motions intact. Lids and lashes normal. Conjunctiva and sclera are non-icteric and not injected. Cornea within normal limits. Periorbital areas with no swelling, redness, or edema. 13:41 Neck: Trachea midline, no thyromegaly or masses palpated, and no cervical lymphadenopathy. Supple, full range of motion without nuchal rigidity, or vertebral point tenderness. No Meningismus. Chest/axilla: Normal chest wall appearance and motion. Nontender with no deformity. No lesions are appreciated. Cardiovascular: Regular rate and rhythm with a normal S1 and S2. No gallops, murmurs, or rubs. Normal PMI, no JVD. No pulse deficits. Respiratory: Lungs have equal breath sounds bilaterally, clear to auscultation and percussion. No rales, rhonchi or wheezes noted. No increased work of breathing, no retractions or nasal flaring. Abdomen/GI: Soft, non-tender, with normal bowel sounds. No distension or tympany. No guarding or rebound. No evidence of tenderness throughout. Back: No spinal tenderness. No costovertebral tenderness. Full range of motion. Pelvic Exam: Normal external genitalia. Speculum exam with closed cervical os, no discharge or bleeding noted. Bimanual exam with normal adnexa, no adnexal or cervical motion tenderness. Normal uterus. Skin: Warm, dry with normal turgor. Normal color with no rashes, no lesions, and no evidence of cellulitis. MS/ Extremity: Pulses equal, no cyanosis. Neurovascular intact. Full, normal range of motion. Neuro: Awake and alert, GCS 15, oriented to person, place, time, and situation. Cranial nerves II-XII grossly intact. Motor strength 5/5 in all extremities. Sensory grossly intact. Cerebellar exam normal. Normal gait. Psych: Awake, alert, with orientation to person, place and time. Behavior, mood, and affect are within normal limits. 13:41 ENT: External ear(s): are unremarkable, Ear canal(s): are normal, TM's: are normal, Nose: is normal, Mouth: Lips: normal, Oral mucosa: Gums: reddened, swollen, on the lower right first molar and lower right second molar, Dental exam: dental caries, that is moderate, gum swelling, that is moderate, specifically in the lower right first molar (#30) and lower right second molar (#31). Vital Signs: 12:23 BP 124 / 91; Pulse 83; Resp 17; Temp 98; Pulse Ox 100% ; Weight 54.43 kg; Height 5 ft. jl7 1 in. (154.94 cm); Pain 10/10; 13:54 BP 123 / 96; Pulse 65; Resp 18; Pulse Ox 100% on R/A; kr3 12:23 Body Mass Index 22.67 (54.43 kg, 154.94 cm) jl7 Procedures: 13:42 Nerve block: (dental) of right inferior alveolar nerve, Medication: Lidocaine 1% jl9 without epinephrine Amount: 3 mls were injected, Effect: the patient's symptoms are improved, Set up for procedure. Performed by Dylan Rivera Patient tolerated well. MDM: 12:28 Patient medically screened. jl9 13:43 Data reviewed: vital signs, nurses notes. Counseling: I had a detailed discussion with jl9 the patient and/or guardian regarding: the historical points, exam findings, and any diagnostic results supporting the discharge/admit diagnosis, the need for outpatient follow up, a dentist, to return to the emergency department if symptoms worsen or persist or if there are any questions or concerns that arise at home. Response to treatment: the patient's symptoms have markedly improved after treatment. 03/01 12:28 Order name: XRAY Elbow RIGHT 2 view; Complete Time: 13:28 jl9 Administered Medications: 13:43 Drug: morphine 2 mg Route: IM; Site: right deltoid; kr3 13:52 Follow up: Response: No adverse reaction; RASS: Alert and Calm (0) kr3 13:43 Drug: Lidocaine (1 %) 5 mg Route: Infiltration; kr3 13:52 Follow up: Response: No adverse reaction kr3 Disposition: 15:36 STAFF ATTESTATION STATEMENT: I was immediately available onsite in the emergency sd2 department for consultation in the care of this patient. I did not see or examine this patient. Erika Stovall MD. Disposition Summary: 03/01/22 13:44 Discharge Ordered Location: Home 9 Condition: Stable jl9 Diagnosis - Dental caries, unspecified jl9 Followup: jl9 - With: Private Physician - When: 1 - 2 days - Reason: Recheck today's complaints, Continuance of care, Re-evaluation by your physician Discharge Instructions: - Discharge Summary Sheet jl9 - Dental Pain, [id number] jl9 Forms: - Medication Reconciliation Form jl9 - Thank You Letter jl9 - Antibiotic Education jl9 - Prescription Opioid Use jl9 Prescriptions: - Augmentin 875-125 mg Oral Tablet - take 1 tablet by ORAL route every 12 hours for 10 days; 20 tablet; Refills: 0, jl9 Product Selection Permitted - Tylenol-Codeine #3 300 mg-30 mg Oral - take 1 tablet by ORAL route every 6 hours As needed; 16 tablet; Refills: 0, jl9 Product Selection Permitted Signatures: Dispatcher [employer] Nasima Felix RN RN jl7 Miguel, Dylan laura9 Erika Stovall MD MD sd2 Chantel Pendleton RN RN kr3 Corrections: (The following items were deleted from the chart) 13:41 13:40 This 36 yrs old Female presents to ER via Ambulatory with complaints of jl9 Toothache, Facial Swelling, Elbow Pain. jl9
[2022-03-01 14:13] VITALS: BP 124/91; TEMP 98; O2SAT 100
== END 2022-03-01 13:53 | disposition home or self-care (01) ==
LOC: ER 12:08
DX: K02.9 Dental caries, unspecified (principal)
CPT/HCPCS: 96372; 99283; J2270